=== PATIENT | female | born 1990 | race Caucasian/White ===

== ENCOUNTER 2022-04-24 19:42 | Emergency (ER) | payer OTHER, SELFPAY ==
--- NOTE | ~2022-04-24 | XR_ITS ---
EXAMINATION: XR KNEE, LEFT CLINICAL INFORMATION: Swelling and pain COMPARISON: None TECHNIQUE: Four views of the left knee. FINDINGS: Bones and soft tissues are normal. No fracture or joint effusion. Alignment is anatomic. Joint spaces are well maintained. No abnormal soft tissue calcification. XR/XR knee LT 4V IMPRESSION: Unremarkable left knee exam.
--- NOTE | ~2022-04-24 | US_ITS ---
EXAMINATION: US VENOUS ULTRASOUND WITH DOPPLER LOWER EXTREMITY, LEFT CLINICAL INFORMATION: Swelling and pain COMPARISON: None TECHNIQUE: Ultrasound of the deep veins is performed from the hip to the calf with compression sonography and color and pulse Doppler assessment. Spectral analysis with color-flow imaging is performed. FINDINGS: There is normal venous compression and respiratory variation and augmented flow. The visualized common femoral vein, superficial femoral vein, profunda femoral vein, popliteal vein, and the trifurcation region shows no evidence of deep venous thrombosis. There is no significant popliteal fossa cyst. If the patient's symptoms persist, followup ultrasound in 5 days 7 days might be of value to exclude proximal propagation from a non-visualized calf vein. US/US venous duplex LE LT IMPRESSION: No DVT demonstrated in the left lower extremity.
[2022-04-24 20:18] VITALS: BP 152/99; PULSE 76; RESP 16; TEMP 36.8; O2SAT 99; BMI 42.0
--- NOTE | 2022-04-24 20:20 | ED_ITS ---
HPI - Extremity Problem General Chief complaint: Extremity Injury, Lower <JOSÉ MIGUEL Ryan - Last Filed: 04/24/22 20:21> Stated complaint: L leg swelling/no inj <JOSÉ MIGUEL yRan - Last Filed: 04/24/22 20:21> Time Seen by Provider: 04/24/22 22:53 <JOSÉ MIGUEL Ryan - Last Filed: 04/24/22 20:21> Source: patient <Luly Boo MD - Last Filed: 04/24/22 23:10> Mode of arrival: ambulatory <Luly Boo MD - Last Filed: 04/24/22 23:10> History of Present Illness HPI Narrative: 32-year-old female who presents with awakening with left knee discomfort and mild swelling yesterday morning. Patient denies any acute injury, fevers, chills. She does states that at times she can get some mild swelling into the left knee. <Luly Boo MD - Last Filed: 04/24/22 23:10> Related Data Allergies/Adverse reactions: Allergies Allergy/AdvReac Type Severity Reaction Status Date / Time iv contras Allergy Severe hives Uncoded 04/24/22 20:18 <JOSÉ MIGUEL Ryan - Last Filed: 04/24/22 20:21> Review of Systems Review of Systems: Pertinent positives and negatives as stated in HPI <Luly Boo MD - Last Filed: 04/24/22 23:10> PMFSH Past Medical History Source: nursing notes reviewed <Luly Boo MD - Last Filed: 04/24/22 23:10> Physical Exam Vital Signs: Vital Signs: Last Vital Signs Temp 98.3 F 04/24/22 20:18 Pulse 76 04/24/22 20:18 Resp 16 04/24/22 20:18 BP 152/99 H 04/24/22 20:18 Pulse Ox 99 04/24/22 20:18 O2 Del Method 04/24/22 20:18 BMI result Body Mass Index 42.0 <JOSÉ MIGUEL Ryan - Last Filed: 04/24/22 20:21> Vital Signs: Last Vital Signs Temp 98.3 F 04/24/22 20:18 Pulse 76 04/24/22 20:18 Resp 16 04/24/22 20:18 BP 152/99 H 04/24/22 20:18 Pulse Ox 99 04/24/22 20:18 O2 Del Method 04/24/22 20:18 BMI result Body Mass Index 42.0 VITAL SIGNS: Reviewed. GENERAL: Well developed, well nourished, in no acute distress. HEAD: Normocephalic/atraumatic EYES: PERRLA, EOMI LUNGS: Normal breath sounds. CARDIOVASCULAR: Regular rate and rhythm without noted murmurs ABDOMEN: Soft, non-tender, non-distended with bowel sounds. MUSCULOSKELETAL: No tenderness, deformities, or effusions noted on gross inspection. EXTREMITIES: No cyanosis, clubbing or edema; LEFT KNEE: On comparison with the right knee there are no obvious abnormalities, may be a very trace amount of swelling to the lateral aspect of the patella, no Bell cyst appreciated, no c ords, no erythema or induration. SKIN: Inspection of the skin reveals no rashes NEUROLOGIC: Alert and oriented x 4. Strength and sensation to light touch were grossly intact x 4. <Luly Boo MD - Last Filed: 04/24/22 23:10> Course Course Course Narrative: RME - 32 y/o female with history of obesity and chronic left knee issues ( pops in and out spontaneously ) who presents to the ER for evaluation of nontraumatic left knee swelling that started yesterday. Woke up today with swelling and pain extending to the calf. Worse with palpation and ambulation. Plan: XR knee and U/S LE <JOSÉ MIGUEL Ryan - Last Filed: 04/24/22 20:21> Medical Decision Making Medical Decision Making MDM Narrative: 32-year-old female with history and clinical presentation after review of all workup is negative for acute findings to suggest infection, ruptured Bell cyst, DVT. Patient was offered a combination of analgesics although she declined stating that she had some a home. She did have an Mook wrap that was put in place for comfort. She is otherwise discharged home in stable condition. <Luly Boo MD - Last Filed: 04/24/22 23:10> Differential Diagnosis Please see the discussion above <Luly Boo MD - Last Filed: 04/24/22 23:10> Radiology Impression Radiologist Impression: My interpretation is in agreement with radiology's impression of the imaging studies. <Luly Boo MD - Last Filed: 04/24/22 23:10> Discharge Plan Discharge Clinical Impression: Knee pain, left <JOSÉ MIGUEL Ryan - Last Filed: 04/24/22 20:21> Patient Disposition: Home, Self-Care <JOSÉ MIGUEL Ryan - Last Filed: 04/24/22 20:21> Instructions: Knee Pain (ED) <JOSÉ MIGUEL Ryan - Last Filed: 04/24/22 20:21> Additional Instructions: 1. Tylenol 1000 mg, orally, every 6 hours as needed for pain control. Do not exceed 4000 mg within 24 hours. 2. Ibuprofen 400 mg, orally with milk or food, every 6 hours as needed for pain control. May take this medication with Tylenol for increased symptom relief. 3. Recommend that you follow-up with your primary care provider by calling the office in the morning and setting up an appointment for re-evaluation further outpatient management. Return to the ER for any worsening symptoms. <JOSÉ MIGUEL Ryan - Last Filed: 04/24/22 20:21>
[2022-04-24 23:12] VITALS: BP 148/84; PULSE 75; RESP 18; TEMP 36.9; O2SAT 100
== END 2022-04-24 23:24 | disposition home or self-care (01) ==
PROVIDERS: Emergency Provider Student in an Organized Health Care Education/Training Program; PCP Internal Medicine
DX: M25.562 Pain in left knee (principal); M79.662 Pain in left lower leg; E66.9 Obesity, unspecified; Z68.41 Body mass index [BMI] 40.0-44.9, adult
CPT/HCPCS: 73564; 93971; 99283; 99284